=== PATIENT | male | born 1995 | race Caucasian/White ===

== ENCOUNTER 2016-07-27 13:38 | Emergency (ER) | payer OTHER ==
[2016-07-27 13:52] VITALS: BP 141/80
--- NOTE | 2016-07-27 15:18 | ED ---
Complex/Multi-Sys Presentation - HPI Summary HPI Summary: Pt here w/ Lt sided rib pain s/p fall Monday. Was x-country race skiing when he got his ski caught and fell forward onto Lt side. Was not wearing a helmet but denies head injury or LOC. Noticed Lt side of chest was pretty sore after this fall but continued the race. In the following days, continued to feel Lt sided rib pain, worse w/ deep breath. He tried swimming a couple of days ago and the overhead reaching, deep breathing and "crunching (his) body to turn" was painful so only swam for 10 mins. Believes he simply bruised his ribs but is not sure. Upon researching his possible condition, he got quite anxious, was pressing on his ribs which triggered pain and nausea - as he stood up, he became lightheaded and vision went dark - he was able to get himself to a bed and in a controlled fashion, laid down. Vision returned soon after. He denies nausea, vomiting, headache, visual change, numbness, weakness, insomnia, photophobia, phonophobia, tinnitus, difficulty concentrating in general and w/ screens since injury and since "syncopal" event. Has never had "syncopal" event before. Has had chest pain w/ running in the past and PCP assessed cardiac function for this. Has not has chest pain w/ exertion since. No h./o cardiac pathology and no family h/o cardiac issues. Pt also denies h/o head injury or neurological issues. He's been eating amd drinking well - urinating and moving bowels well also. No skin changes. He has exercise induced asthma - otherwise healthy 20 y.o. college male. - History Of Current Complaint Chief Complaint: EDChestWallPain Time Seen by Provider: 07/27/16 14:41 Hx Obtained From: Patient - Allergies/Home Medications Allergies/Adverse Reactions: Allergies Allergy/AdvReac Type Severity Reaction Status Date / Time Tree Nuts Allergy Unknown Verified 07/27/16 13:49 Reaction Details PMH/Surg Hx/FS Hx/Imm Hx Previously Healthy: Yes Endocrine/Hematology History: Denies: Hx Anticoagulant Therapy, Hx Blood Disorders, Hx Unexplained Bleeding , Autoimmune Disease Respiratory History: Reports: Hx Asthma - exercise induced - inhaler works well when needed Infectious Disease History: No Infectious Disease History: Denies: Traveled Outside the [place] in Last 30 Days - Family History Known Family History: Positive: None - Social History Occupation: Student Lives: With Family - roommates Alcohol Use: Weekly Hx Substance Use: No Substance Use Type: Reports: None Hx Tobacco Use: No Smoking Status (MU): Never Smoked Tobacco Review of Systems Negative: Fever, Chills, Fatigue Negative: Photophobia, Blurred Vision, Diplopia Negative: Dental Pain Cardiovascular: Other - see HPI Negative: Palpitations Negative: Shortness Of Breath, Cough Gastrointestinal: Negative Positive: no symptoms reported Musculoskeletal: Other - see HPI Negative: Bruising Neurological: Other - see HPI Negative: Headache, Weakness, Paresthesia, Numbness, Syncope, Slurred Speech Positive: Anxious All Other Systems Reviewed And Are Negative: Yes Physical Exam Triage Information Reviewed: Yes Vital Signs On Initial Exam: Initial Vitals Temp Pulse Resp BP Pulse Ox 98.4 F 54 18 141/80 99 07/27/16 13:42 07/27/16 13:42 07/27/16 13:42 07/27/16 13:42 07/27/16 13:42 Vital Signs Reviewed: Yes Appearance: Positive: Well-Appearing, No Pain Distress, Thin Skin: Positive: Warm, Dry - no erythema, no ecchymosis over affected area Head/Face: Positive: Normal Head/Face Inspection - NTTP, no gross deformity Eyes: Positive: Normal, EOMI, OMAR - no photophobia, Conjunctiva Clear ENT: Positive: Normal ENT inspection, Hearing grossly normal, Pharynx normal, TMs normal - no hemotympanum Dental: Negative: Dental Fracture @ Neck: Positive: Supple, Nontender Respiratory/Lung Sounds: Positive: Clear to Auscultation, Breath Sounds Present. Negative: Rales, Rhonchi, Tracheal Deviation, Wheezes Cardiovascular: Positive: Normal, RRR, Pulses are Symmetrical in both Upper and Lower Extremities, S1, S2. Negative: Murmur, Rub Abdomen Description: Positive: No Organomegaly, Soft, Other: - LUQ TTP Bowel Sounds: Positive: Present Musculoskeletal: Positive: Normal, Strength/ROM Intact - but does have pain w/ Lt UE overhead reaching; Lt ribs are TTP and w/o paroxsmal flail chest motion - moving evenly compared B/L Neurological: Positive: Normal, Sensory/Motor Intact, Alert, Oriented to Person Place, Time, CN Intact II-III Psychiatric: Positive: Anxious - hyperverbal Diagnostics - Vital Signs Vital Signs Temp Pulse Resp BP Pulse Ox 07/27/16 13:42 98.4 F 54 18 141/80 99 - Laboratory Result Diagrams: 07/27/16 15:45 07/27/16 15:45 Lab Statement: Any lab studies that have been ordered have been reviewed, and results considered in the medical decision making process. Complex Multi-Symp Course/Dx Course Of Treatment: Rib and chest XR are normal. Labs are normal and in conjunction with vital signs, do not indicate internal bleeding. Further more spleen assesed and intact w/o injury on U/S. Suspect pt's "syncopal" episode of controlled lowering was the effect of anxiety and a vasovagal response. He also does not present w/ any s/sx of concussion. He will be d/c'd w/ rib contusion education and f/U w/ PCP this week. If sx worsen, return to ED. - Diagnoses Provider Diagnoses: Contusion of rib on left side, Vasovagal near syncope Discharge - Discharge Plan Condition: Stable Disposition: HOME Patient Education Materials: Rib Contusion (ED), Near Syncope (ED) Referrals: [facility] ROSA Arroyo [Primary Care Provider] - Additional Instructions: Follow-up with PCP this week for re-evaluation. *If you develop difficulty breathing, chest pain, headache, change in vision, fainting return to ED
--- NOTE | 2016-07-27 15:36 | RAD ---
INDICATION: Left rib injury COMPARISON: none TECHNIQUE: Multiple views of the ribs were obtained. FINDINGS: Bones: There is no evidence of acute rib fracture. There is mild deformity of the lateral right seventh rib LUNGS: The lungs are clear. There is no pneumothorax. Pleural spaces: There is no evidence of hemothorax. Other: None IMPRESSION: NO ACUTE RIB FRACTURE.
--- NOTE | 2016-07-27 15:54 | RAD ---
INDICATION: Left upper quadrant pain status post fall. COMPARISON: There are no prior studies available for comparison. TECHNIQUE: Multiple real-time images of the left upper quadrant were obtained. FINDINGS: The spleen is normal in size, shape and echogenicity. The spleen measured 11.2 x 4.5 x 4.4 cm. No focal abnormalities were seen. No free intraperitoneal fluid is seen. IMPRESSION: NO EVIDENCE FOR SPLENIC INJURY.
[2016-07-27 16:11] LABS: Hematocrit 44 % (42-52); Hemoglobin 15.5 g/dl (14.0-18.0); Mean Corpuscular HGB Conc 35 g/dl (31-36); Mean Corpuscular Hemoglobin 30 pg (27-31); Mean Corpuscular Volume 87 fL (80-94); Mean Platelet Volume 9 um3 (7.4-10.4); Red Blood Count 5.09 10^6/ul (4.0-5.4); Red Cell Distribution Width 13 % (10.5-15); White Blood Count 11.3 10^3/ul (3.5-10.8)
[2016-07-27 16:13] LABS: Albumin 4.8 g/dL (3.2-5.2); BUN/Creatinine Ratio 21.4 (8-20); Calcium 10.3 mg/dL (8.6-10.3); EGFR African American 148.3 (>60); EGFR Non-African American 115.3 (>60); Globulin 2.8 g/dL (2-4); Potassium 4.3 mmol/L (3.5-5.0); Total Protein 7.6 g/dL (6.4-8.9)
== END 2016-07-27 16:59 | disposition home or self-care (01) ==
LOC: ED 13:38
DX: S20.212A Contusion of left front wall of thorax, initial encounter (principal); R55 Syncope and collapse; F41.9 Anxiety disorder, unspecified; W19.XXXA Unspecified fall, initial encounter; Y93.9 Activity, unspecified; Y92.9 Unspecified place or not applicable; Y99.9 Unspecified external cause status
CPT/HCPCS: 36415; 76705; 80053; 83690; 85025; 99282